=== PATIENT | male | born 1980 | race Caucasian/White ===

== ENCOUNTER 2018-10-31 08:02 | Emergency (ER) | payer SELFPAY ==
[2018-10-31 08:18] VITALS: BMI 23.8
[2018-10-31 08:19] VITALS: RESP 18; TEMP 98.4; O2SAT 99
[2018-10-31] MEDS ORDERED: Sodium Chloride 0.9% 1,000 ML IV ONE (08:40)
[2018-10-31 09:10] LABS: BASO % 0.3 % (0.0-2.0); EOS % 0.5 % (0.0-4.0); HEMOGLOBIN 15.2 g/dL (12.0-18.0); LYMPH # 1.4 K/uL (1.0-4.3); LYMPH % 26.5 % (20.0-40.0); MEAN CELL VOLUME 83.6 fL (80.0-94.0); MEAN CORPUSCULAR HEMOGLOBIN 28.7 pg (27.0-31.0); MEAN CORPUSCULAR HGB CONC 34.4 g/dL (33.0-37.0); MEAN PLATELET VOLUME 9.2 fL (7.2-11.7); MONO # 0.2 K/uL (0.0-0.8); MONO % 4.3 % (0.0-10.0); NEUT # 3.7 K/uL (1.8-7.0); NEUT % 68.4 % (50.0-75.0); NRBC % 0.3 % (0.0-2.0); RBC 5.28 Mil/uL (4.40-5.90); RED CELL DISTRIBUTION WIDTH 13.3 % (11.5-14.5); WHITE BLOOD COUNT 5.4 K/uL (4.8-10.8)
[2018-10-31] MEDS ORDERED: Sodium Chloride 0.9% 1,000 ML ONE (09:20)
[2018-10-31 09:28] LABS: ALB/GLOB RATIO 1.8 (1.0-2.1); ALT/SGPT 13 U/L (21-72); AST/SGOT 26 U/L (17-59); BLOOD UREA NITROGEN 10 mg/dL (9-20); CALCIUM 9.6 mg/dl (8.6-10.4); GFR NON-AFRICAN AMERICAN > 60; LIPASE 67 U/L (23-300)
[2018-10-31 10:24] VITALS: BP 127/77; PULSE 87
--- NOTE | 2018-10-31 12:54 | C.PDOC ---
History Of Present Illness 38 y/o male presents to the ER complaining of nausea, vomiting and epigastric abdominal pain which began yesterday. Patient states that he vomited x 2. Patient denies having fever,chills,CP,SOB, and diarrhea. Chief Complaint (Nursing): GI Problem History Per: Patient History/Exam Limitations: no limitations Onset/Duration Of Symptoms: Days Current Symptoms Are (Timing): Still Present Severity: Moderate Past Medical History Reviewed: Historical Data, Nursing Documentation, Vital Signs Vital Signs: Last Vital Signs Temp 98.4 F 10/31/18 08:18 Pulse 87 10/31/18 10:22 Resp 18 10/31/18 10:22 BP 127/77 10/31/18 10:22 Pulse Ox 99 10/31/18 10:22 - Medical History PMH: Anxiety Surgical History: No Surg Hx Family History: States: No Known Family Hx - Social History Hx Alcohol Use: No Hx Substance Use: No - Immunization History Hx Tetanus Toxoid Vaccination: Yes Hx Influenza Vaccination: No Hx Pneumococcal Vaccination: No Review Of Systems Except As Marked, All Systems Reviewed And Found Negative. Constitutional: Negative for: Fever, Chills Gastrointestinal: Positive for: Nausea, Vomiting, Abdominal Pain. Negative for: Diarrhea Genitourinary: Negative for: Dysuria, Hematuria Physical Exam - Physical Exam Appears: Non-toxic, No Acute Distress Skin: Normal Color, Warm, Dry Head: Atraumatic, Normacephalic Eye(s): bilateral: Normal Inspection Nose: Normal Oral Mucosa: Dry Neck: Supple Chest: Symmetrical Cardiovascular: Rhythm Regular Respiratory: Normal Breath Sounds, No Rales, No Rhonchi, No Wheezing Gastrointestinal/Abdominal: Soft, Tenderness (epigastric tenderness), No Guarding, No Rebound Neurological/Psych: Oriented x3, Normal Speech ED Course And Treatment - Laboratory Results Result Diagrams: 10/31/18 09:03 10/31/18 09:03 Lab Results: Total Bilirubin 0.5 mg/dL (0.2-1.3) 10/31/18 09:03 AST 26 U/L (17-59) 10/31/18 09:03 ALT 13 U/L (21-72) L 10/31/18 09:03 Alkaline Phosphatase 86 U/L (38-126) 10/31/18 09:03 Total Protein 7.7 g/dL (6.3-8.3) 10/31/18 09:03 Albumin 5.0 g/dL (3.5-5.0) 10/31/18 09:03 Globulin 2.7 gm/dL (2.2-3.9) 10/31/18 09:03 Albumin/Globulin Ratio 1.8 (1.0-2.1) 10/31/18 09:03 Lipase 67 U/L (23-300) 10/31/18 09:03 O2 Sat by Pulse Oximetry: 99 (RA) Pulse Ox Interpretation: Normal Medical Decision Making Medical Decision Making: Plan: --Labs --IV Fluids --Pepcid IV --Zofran IV Disposition - Disposition Disposition: HOME/ ROUTINE Disposition Time: 09:30 Condition: IMPROVED Additional Instructions: AL ADHIKARI, thank you for letting us take care of you today. The emergency medical care you received today was directed at your acute symptoms. If you were prescribed any medication, please fill it and take as directed. It may take several days for your symptoms to resolve. Return to the Emergency Department if your symptoms worsen, do not improve, or if you have any other problems. Please contact your doctor or call one of the physicians/clinics you have been referred to that are listed on the Patient Visit Information form that is included in your discharge packet. Bring any paperwork you were given at discharge with you along with any medications you are taking to your follow up visit. Our treatment cannot replace ongoing medical care by a primary care provider outside of the emergency department. Thank you for allowing the [email or web address] team to be part of your care today. Follow up in the clinic this week for re-evaluation and further management. Instructions: Gastritis (DC) Forms: [employer] (Persian) - Clinical Impression Clinical Impression: Gastritis - Scribe Statement The provider has reviewed the documentation as recorded by the Rafiaibkeri Allen Provider Attestation: All medical record entries made by the Scribe were at my direction and personally dictated by me. I have reviewed the chart and agree that the record accurately reflects my personal performance of the history, physical exam, medic al decision making, and the department course for this patient. I have also personally directed, reviewed, and agree with the discharge instructions and disposition.
== END 2018-10-31 10:24 | disposition home or self-care (01) ==
LOC: C.ER 08:02
DX: K29.70 Gastritis, unspecified, without bleeding (principal)
CPT/HCPCS: 80053; 83690; 85025; 96361; 96374; 96375; 99284; J2405; J7030